=== PATIENT | male | born 1975 | race African-American/Black ===

== ENCOUNTER 2016-06-02 18:52 | Emergency (ER) | payer MEDICAID ==
[~2016-06-02] VITALS: Ht 182.9 cm; Wt 86.2 kg
[2016-06-02] MEDS ORDERED: UNOBMED (18:57)
[2016-06-02 19:14] VITALS: BP 161/101
[2016-06-02 19:23] VITALS: BP 161/101
--- NOTE | 2016-06-02 20:39 | Emergency Room Report ---
History of Present Illness General Chief Complaint: Seizure Source: EMS Present Illness Allergies: Coded Allergies: UNABLE TO ASSESS (Unverified , 06/02/16) Nursing Documentation-[facility] Past Medical History Deferred: Pt Cognitively Impaired Physical Exam Vital Signs Date Time Temp Pulse Resp B/P Pulse Ox O2 Delivery O2 Flow Rate FiO2 06/02/16 18:47 90 20 181/100 99 Room Air 06/02/16 19:14 98.9 Medical Decision Making Diagnostic Impression: Primary Impression: Seizure disorder ER Course Patient brought in by EMS for possible seizure. Friend stated that they witnessed a seizure. Unclear whether patient had seizure history. Patient please in bed. Before patient could be hooked up to monitor, patient stated he wanted to leave. Started putting his clothes and walked out of ED. Did not want to wait for physician evaluation. Patient was awake alert oriented, ambulating without difficulty. Last Vital Signs Date Time Temp Pulse Resp B/P Pulse Ox O2 Delivery O2 Flow Rate FiO2 06/02/16 19:23 98.9 85 14 161/101 100 Room Air Status: improved Disposition: LEFT W/OUT BEING SEEN Condition: Stable Referrals: [facility],REFERRING (PCP) JUVENTINO FARRAR M.D. Jun 02, 2016 20:39
== END 2016-06-02 20:00 | disposition left against medical advice (07) ==
LOC: EDBD 18:52 → EMR 19:49
DX: G40.909 Epilepsy, unspecified, not intractable, without status epilepticus (principal); Z53.21 Procedure and treatment not carried out due to patient leaving prior to being seen by health care provider
CPT/HCPCS: 99281